=== PATIENT | female | born 1970 | race Caucasian/White ===

== ENCOUNTER → 2017-03-27 | Outpatient (CLI) | payer OTHER ==
[~2017-03-27] MED LIST: DICY20TA PO; PREDNISONE5 MG/5 ML; PROTONIX40 MG PO; ZANTAC300 MG PO; ZOFRAN4 MG PO
== END | disposition home or self-care (01) ==
LOC: RAD 501 11:32
DX: M25.511 Pain in right shoulder (principal)

== ENCOUNTER 2017-12-30 10:02 | Emergency (ER) | payer OTHER ==
[~2017-12-30] VITALS: Ht 144.8 cm; Wt 55.8 kg
[2017-12-30] MEDS ORDERED: FAMCICLOVIR500 MG PO (14:19)
[2017-12-30] MEDS ORDERED: ZOVIRAX5 GM TOP (14:21)
== END 2017-12-30 15:17 | disposition home or self-care (01) ==
LOC: ER 10:02
DX: R51 Headache (principal); R20.2 Paresthesia of skin; R20.0 Anesthesia of skin

== ENCOUNTER 2018-05-19 15:17 | Outpatient (CLI) | payer OTHER ==
[~2018-05-19 15:17] MED LIST changes: +FAMCICLOVIR500 MG PO; +ZOVIRAX5 GM TOP
== END 2018-05-19 16:20 | disposition home or self-care (01) ==
LOC: LAB 15:17 → EKG 15:17
DX: R00.2 Palpitations (principal)

== ENCOUNTER → 2020-11-24 10:30 | Outpatient (CLI) | payer OTHER | END | disposition home or self-care (01) | LOC: PPH VACUNA 10:30 | PROVIDERS: ATTEND Emergency Medicine Pediatric Emergency Medicine | DX: Z23 Encounter for immunization (principal) ==

== ENCOUNTER 2021-06-15 08:00 | Outpatient (CLI) | payer OTHER | END 2021-06-15 08:30 | disposition home or self-care (01) | LOC: PPH VACUNA 08:00 | PROVIDERS: ATTEND Emergency Medicine Pediatric Emergency Medicine | DX: Z23 Encounter for immunization (principal); Z71.85 Encounter for immunization safety counseling ==

== ENCOUNTER 2022-04-11 08:09 | Outpatient (CLI) | payer OTHER | END 2022-04-11 12:19 | disposition home or self-care (01) | LOC: MAMO-SONO 08:09 | PROVIDERS: ATTEND Obstetrics & Gynecology Obstetrics | DX: N64.4 Mastodynia (principal) ==

== ENCOUNTER 2023-02-08 10:03 | Emergency (ER) | payer OTHER ==
[~2023-02-08] VITALS: Ht 144.8 cm; Wt 59.4 kg
[2023-02-08] MEDS ORDERED: CRESTOR5 MG PO (10:20)
[2023-02-08 11:09] LABS: HEMATOCRIT 39.9 % (36.0-45.00); HEMOGLOBIN 13.8 g/dL (12.0-15.00); MEAN CELL VOLUME 84.2 fL (80.00-100.00); MEAN CORPUSCULAR HGB CONC 34.5 g/dl (32.0-36.0); PLATELET COUNT 233 K/uL (150-450); RED BLOOD COUNT 4.74 M/uL (4.00-6.00); RED CELL DISTRIBUTION WIDTH 13.6 % (11.5-14.5)
[2023-02-08 11:38] LABS: CALCIUM 9.3 mg/dL (8.5-10.1); CREATININE SERUM 0.7 mg/dL (0.55-1.02); GFR 87.53; POTASSIUM 3.94 mEq/L (3.5-5.1)
[2023-02-08] MEDS ORDERED: DICY20TA PO (13:46)
[2023-02-08] MEDS ORDERED: INTESTINEX680 M1 PO (13:46)
[2023-02-08] MEDS ORDERED: PEPCID AC20 MG PO (13:46)
[2023-02-08] MEDS ORDERED: ZOFRAN8 MG PO (13:46)
== END 2023-02-08 13:59 | disposition home or self-care (01) ==
LOC: ER 10:04
PROVIDERS: General Practice
DX: K52.9 Noninfective gastroenteritis and colitis, unspecified (principal); R10.84 Generalized abdominal pain